=== PATIENT | female | born 1975 ===

== ENCOUNTER 2020-05-19 15:58 | Outpatient (REF) | payer OTHER, SELFPAY ==
--- NOTE | ~2020-05-19 | MM_ITS ---
EXAMINATION: MM SCREENING DIGITAL BREAST TOMOSYNTHESIS, BILATERAL CLINICAL INFORMATION: Screening. Asymptomatic. The lifetime risk of breast cancer based on the Tyrer-Cuzick Model is 7%. COMPARISON: Mammography: 03/12/2019, outside exam 04/28/2017 ([facility]) TECHNIQUE: Digital breast tomosynthesis is performed in both the craniocaudal and mediolateral oblique views along with computer-aided detection (CAD). Synthesized 2D images are generated from the tomosynthesis. FINDINGS: There are scattered areas of fibroglandular density (ACR BI-RADS breast composition Category b). There are no significant masses, abnormal calcifications, or other abnormalities. Parenchymal pattern is similar to prior exams. No significant changes. MM/MM tomosynthesis screening BI IMPRESSION: No mammographic evidence of malignancy. ASSESSMENT: BI-RADS 1: Negative RECOMMENDATION: Routine annual mammography screening. This patient's information was entered into a reminder system with a target due date for their next mammogram.
== END 2020-05-19 15:59 | disposition home or self-care (01) ==
LOC: HO.MAMMO 15:58
PROVIDERS: Visit Provider Internal Medicine
DX: Z12.31 Encounter for screening mammogram for malignant neoplasm of breast (principal)
CPT/HCPCS: 77063; 77067

== ENCOUNTER 2021-05-22 11:48 | Outpatient (REF) | payer OTHER, SELFPAY ==
--- NOTE | ~2021-05-22 | MM_ITS ---
EXAMINATION: MM SCREENING DIGITAL BREAST TOMOSYNTHESIS, BILATERAL CLINICAL INFORMATION: Screening. Asymptomatic. The lifetime risk of breast cancer based on the Tyrer-Cuzick Model is 8%. COMPARISON: Mammography: 05/19/2020, 03/12/2019; outside exam 04/28/2017 ([facility] Guz[facility]) TECHNIQUE: Digital breast tomosynthesis is performed in both the craniocaudal and mediolateral oblique views along with computer-aided detection (CAD). Synthesized 2D images are generated from the tomosynthesis. Additional left MLO view is provided. FINDINGS: There are scattered areas of fibroglandular density (ACR BI-RADS breast composition Category b). There are no significant masses, abnormal calcifications, or other abnormalities. There are scattered shifting fibroglandular parenchymal densities overall similar to prior studies. Fine fibronodular parenchymal pattern is stable. There is no interval developing density or architectural changes. No significant change from prior studies. MM/MM tomosynthesis screening BI IMPRESSION: No mammographic evidence of malignancy. ASSESSMENT: BI-RADS 2: Benign RECOMMENDATION: Routine annual mammography screening. This patient's information was entered into a reminder system with a target due date for their next mammogram.
== END 2021-05-22 11:49 | disposition home or self-care (01) ==
LOC: HO.MAMMO 11:48
PROVIDERS: PCP Internal Medicine; Visit Provider Internal Medicine
DX: Z12.31 Encounter for screening mammogram for malignant neoplasm of breast (principal)
CPT/HCPCS: 77063; 77067

== ENCOUNTER 2022-05-13 11:41 | Outpatient (REF) | payer OTHER, SELFPAY ==
--- NOTE | 2022-05-13 08:15 | EMG_ITS ---
Right median and ulnar motor and sensory studies were performed. Right radial sensory study was performed and paraspinal muscles were tested with a needle. IMPRESSION: Mild to moderate right median neuropathy across carpal tunnel. MD BEATA Baxter/RAYMOND / [id number]
== END 2022-05-13 11:42 | disposition home or self-care (01) ==
LOC: HO.NEURO 11:41
PROVIDERS: Visit Provider Internal Medicine
DX: G56.01 Carpal tunnel syndrome, right upper limb (principal)
CPT/HCPCS: 95886; 95909

== ENCOUNTER 2022-06-14 12:21 | Outpatient (REF) | payer OTHER, SELFPAY ==
[2022-06-16 23:33] LABS: HPV mRNA E6/E7 rflx Not Detected (Not Detected)
== END 2022-06-14 12:22 | disposition home or self-care (01) ==
LOC: HO.LNP 12:21
PROVIDERS: PCP Internal Medicine; Visit Provider Obstetrics & Gynecology
DX: Z12.4 Encounter for screening for malignant neoplasm of cervix (principal); N93.9 Abnormal uterine and vaginal bleeding, unspecified
CPT/HCPCS: 87624; 88142; 99202

== ENCOUNTER 2022-06-14 13:25 | Outpatient (REF) | payer OTHER, SELFPAY ==
[2022-06-14 14:10] LABS: Hematocrit 38.9 % (37.0-47.0); Hemoglobin 12.5 g/dl (12.0-16.0); Mean Corpuscular HGB Conc 32.1 g/dl (31.0-35.0); Mean Corpuscular Hemoglobin 29.4 pg (27.0-33.0); Mean Corpuscular Volume 91.5 fL (80.0-98.0); Mean Platelet Volume 10.1 fL (9.4-12.3); Platelet Count 246 X10*3/uL (160-400); Red Blood Count 4.25 X10*6/uL (4.20-5.50); Red Cell Distribution Width 11.9 % (11.0-16.0); White Blood Count 7.4 X10*3/uL (4.8-10.8)
[2022-06-14 15:11] LABS: HCG Quantitative < 2 mIU/mL
[2022-06-14 16:07] LABS: CT PCR NOT DETECTED (Not Detect.); NG PCR NOT DETECTED (Not Detect.)
[2022-06-16 07:08] LABS: Lutenizing Hormone 1.6 mIU/mL; Prolactin 8.1 ng/mL
== END 2022-06-14 13:26 | disposition home or self-care (01) ==
LOC: HO.LAB 13:25
PROVIDERS: PCP Internal Medicine; Visit Provider Obstetrics & Gynecology
DX: Z11.3 Encounter for screening for infections with a predominantly sexual mode of transmission (principal); N93.9 Abnormal uterine and vaginal bleeding, unspecified
CPT/HCPCS: 0353U; 83001; 83002; 84146; 84443; 84702; 85027

== ENCOUNTER 2022-08-03 14:49 | Outpatient (REF) | payer OTHER, SELFPAY ==
--- NOTE | ~2022-08-03 | MM_ITS ---
EXAMINATION: MM SCREENING DIGITAL BREAST TOMOSYNTHESIS, BILATERAL CLINICAL INFORMATION: Screening. Asymptomatic. The lifetime risk of breast cancer based on the Tyrer-Cuzick Model is 8%. COMPARISON: Mammography: 05/22/2021, 05/19/2020, 03/12/2019 TECHNIQUE: Digital breast tomosynthesis is performed in both the craniocaudal and mediolateral oblique views along with computer-aided detection (CAD). Synthesized 2D images are generated from the tomosynthesis. FINDINGS: The breasts are heterogeneously dense, which may obscure small masses (ACR BI-RADS breast composition Category c). There is fibronodular parenchymal pattern is similar to prior studies. No architectural abnormality. There are scattered shifting fibroglandular parenchymal densities related to variation in positioning. No developing density. There are no significant masses or abnormal calcifications. The axilla and skin contours are unremarkable. MM/MM tomosynthesis screening BI IMPRESSION: No mammographic evidence of malignancy. ASSESSMENT: BI-RADS 2: Benign RECOMMENDATION: Routine annual mammography screening. This patient's information was entered into a reminder system with a target due date for their next mammogram.
--- NOTE | ~2022-08-03 | US_ITS ---
EXAMINATION: US PELVIS CLINICAL INFORMATION: Dysfunctional uterine bleeding. LMP 07/21/2022. COMPARISON: None available. TECHNIQUE: Ultrasound of the pelvis is performed using both transabdominal and transvaginal transducers along with Doppler. Transvaginal imaging is performed due to inadequate visualization transabdominally. FINDINGS: Uterus: The uterus is anteverted and measures 9.9 x 4.5 x 5.2 cm. Uterine echotexture is heterogeneous. The double wall endometrial thickness is 19 mm. Endometrium is thickened and heterogeneous with cystic spaces. No internal color Doppler flow. Adnexa: Both ovaries are visualized. There is normal color flow to the adnexa. There is no pelvic ascites or fluid collection. Right ovary measures 3.8 x 2.0 x 2.7 cm. Left ovary measures 2.3 x 1.2 x 1.4 cm. Exophytic cyst measures 0.7 x 0.6 x 0.5 cm. US/US pelvic and transvaginal IMPRESSION: Thickened and heterogeneous endometrium with cystic spaces. Gynecologic consultation is advised.
== END 2022-08-03 14:50 | disposition home or self-care (01) ==
LOC: HO.US 14:49
PROVIDERS: PCP Internal Medicine; Visit Provider Obstetrics & Gynecology
DX: Z12.31 Encounter for screening mammogram for malignant neoplasm of breast (principal); N93.9 Abnormal uterine and vaginal bleeding, unspecified
CPT/HCPCS: 76830; 76856; 77063; 77067

== ENCOUNTER 2022-08-26 07:58 | Outpatient (AMB) | payer OTHER, SELFPAY ==
--- NOTE | 2022-08-26 07:58 | MHC.OFFVIS ---
Intake Vital Signs 08/26/22 08:02 Height 5 ft 3 in Weight 152 lb 1.903 oz BMI 26.9 BP 120/74 Intake Visit Reasons: us follow up Health Practice Manager Required: Yes Health Practice Manager Language: Blacksmith Helper Name: Sue WEINBERG Information Interpreted: non-clinical & clinical Biostatistics Director: Biostatistics Director Present Accompanied by: Self / Same As Patient Allergies No Known Allergies Allergy (Verified 08/26/22 08:03) Is last menstrual period known: Yes Last menstrual period: 08/18/22 Post menopausal: No Patient : No Do you need a note to return to daycare/school/sports/work: Yes (for surgery on tuesday) HPI HPI Comments History of Present Illness Details Presenting for follow-up. Ultrasound showed the following: Uterus: The uterus is anteverted and measures 9.9 x 4.5 x 5.2 cm.? Uterine echotexture is heterogeneous. The double wall endometrial thickness is 19 mm. Endometrium is thickened and heterogeneous with cystic spaces. No internal color Doppler flow. Adnexa: Both ovaries are visualized. There is normal color flow to the adnexa. There is no pelvic ascites or fluid collection. Right ovary measures 3.8 x 2.0 x 2.7 cm. Left ovary measures 2.3 x 1.2 x 1.4 cm. Exophytic cyst measures 0.7 x 0.6 x 0.5 cm. PFSH Medical History Anxiety Surgical History Hx of tubal ligation S/P foot surgery, right Female Reproductive History Menstrual Age of Menarche: 13 Date of last menstrual period: 08/18/22 Total pregnancies: 2 Full term: 2 Review of Systems Card Reports as per HPI and Reports no additional complaints Resp Reports as per HPI and Reports no additional complaints GI Reports as per HPI and Reports no additional complaints Reports as per HPI Physical Exam Vital Signs: Last Vital Signs BP 120/74 08/26/22 08:02 BMI result Body Mass Index 26.9 Const General: cooperative, healthy appearing and comfortable Chest Chest palpation & inspection: normal inspection of the chest and normal palpation of entire chest wall Breast/axilla inspection: normal inspection of the breasts and normal inspection of the axillae Breast/axilla palpation: normal palpation of the breasts, normal palpation of the axillae and no axillary lymphadenopathy Resp Effort & Inspection: normal respiratory effort Auscultation: clear to auscultation bilaterally Percussion: percussion normal Cardio Palpation: normal PMI Rate: regular rate Rhythm: regular rhythm Heart sounds: no murmurs and no rubs Peripheral pulses: Peripheral pulses 2+ throughout GI Inspection: Yes normal to inspection Palpation (GI): Soft to palpation, nontender, no guarding, not rigid and No hepatosplenomegaly present Percussion: Yes normal to percussion Auscultation: normal bowel sounds Rectal Exam - Female: deferred Assessment & Plan Assessment & Plan (1) Abnormal uterine bleeding (AUB): Comment: Abn endo by US Code(s): N93.9 - Abnormal uterine and vaginal bleeding, unspecified Plan: Discussed with the patient the results of ultrasound, recommended endometrial sampling via either endometrial biopsy in the office or hysteroscopy D&C possible polypectomy/myomectomy. All the pros and cons, risks and benefits of each were discussed with the patient, the patient decided to proceed with hysteroscopy D&C possible polypectomy/myomectomy. Discussed with the patient the procedure , all benefits and risks including but not limited to inability to complete the procedure , bleeding, infection, possible need for blood transfusion with all its risk ( HIV,syphilis, Hepatitis, anaphylaxis shock, others..), injury to bladder, rectum, possible need for laparoscopy/laparotomy or hysterectomy. The patient verbalized understanding and signed the consent. Instructions given the patient to schedule a 2 week postoperative appointment Coding Level of Care Code Est Pt Level 3 (64013) Diagnoses Abnormal uterine bleeding (AUB) N93.9
[2022-08-26 08:02] VITALS: BP 120/74; BMI 26.9
== END 2022-08-26 09:15 | disposition home or self-care (01) ==
LOC: HO.HWS 07:58
PROVIDERS: PCP Internal Medicine; Visit Provider Obstetrics & Gynecology
DX: N93.9 Abnormal uterine and vaginal bleeding, unspecified (principal)
CPT/HCPCS: 99213

== ENCOUNTER → 2022-08-26 07:58 | Outpatient (BNVA) | payer OTHER, SELFPAY | PROVIDERS: PCP Internal Medicine; Visit Provider Obstetrics & Gynecology | DX: N93.9 Abnormal uterine and vaginal bleeding, unspecified (principal) | CPT/HCPCS: 99212 ==

== ENCOUNTER 2022-09-17 08:53 | Day surgery (SDC) | payer OTHER, SELFPAY ==
[2022-09-14 11:53] VITALS: BMI 26.9
--- NOTE | 2022-09-16 08:28 | HO.ANESPROP2 ---
Documented by User: Cyndi Miramontes NP 09/16/22 08:29 HPI - Anesthesia Eval Consult details Narrative: 47yo F for D&C Hysteroscopy,poss myomectomy,poss polypectomy PMFSH Active Problems Active Problems: All Active Problems (Updated 08/26/22 @ 08:13 by Devang Mosley MD) Abnormal uterine bleeding (AUB) (Acute) Past Medical History Medical History Anxiety Surgical History Surgical History Hx of tubal ligation S/P foot surgery, right Social History Social History Patient Tobacco Use Status: Never used Tobacco Second Hand Smoke Exposure: No Use of substances other than those prescribed or required for medical reasons: No Are you DNR?: No Advance Directives: No Advance Directives Information Provided: Yes Advance Directives on File: No Meds Allergies Allergy/AdvReac Type Severity Reaction Status Date / Time No Known Allergies Allergy Verified 08/26/22 08:03 Home Medications Medication Instructions Recorded Confirmed Last Taken Type aripiprazole 2 mg tablet 2 mg PO QPM 06/14/22 09/14/22 Unknown History montelukast 10 mg tablet 10 mg PO DAILY 06/14/22 09/14/22 Unknown History trazodone 50 mg tablet 50 mg PO BEDTIME 06/14/22 09/14/22 Unknown History Exam Exam Date and Time: September 16, 2022 0828 Height,Weight and Vital Signs: Height 5 ft 3 in Weight 68.946 kg Assessment and Plan Assessment Anesthesia Assessment: Chart Reviewed Documented by User: Breana Viera MD 09/17/22 10:01 PMFSH Active Problems Active Problems: All Active Problems (Updated 09/17/22 @ 09:45 by Man Viera MD) Abnormal uterine bleeding (AUB) (Acute) Past Medical History Medical History Anxiety Family History Family history of problems with anesthesia: No Surgical History Surgical History Hx of tubal ligation S/P foot surgery, right History of Problems with Anesthesia: No Social History Social History Patient Tobacco Use Status: Never used Tobacco Second Hand Smoke Exposure: No Use of substances other than those prescribed or required for medical reasons: No Are you DNR?: No Advance Directives: No Advance Directives Information Provided: Yes Advance Directives on File: No Meds Allergies Allergy/AdvReac Type Severity Reaction Status Date / Time No Known Allergies Allergy Verified 08/26/22 08:03 Home Medications Medication Instructions Recorded Confirmed Last Taken Type aripiprazole 2 mg tablet 2 mg PO QPM 06/14/22 09/14/22 Unknown History montelukast 10 mg tablet 10 mg PO DAILY 06/14/22 09/14/22 Unknown History trazodone 50 mg tablet 50 mg PO BEDTIME 06/14/22 09/14/22 Unknown History Exam Height,Weight and Vital Signs: Height 5 ft 3 in Weight 68.946 kg Vital Signs Temp Pulse Resp BP Pulse Ox O2 Del Method 09/17/22 09:20 98.3 F 56 16 115/67 100 Room Air Pertinent Lab Results Pertinent Lab Results: Lab Results 09/17/22 Range/Units 09:12 Urine Test NEGATIVE (NEGATIVE) Airway Mallampati Class: II TM Dist: >3cm Neck ROM: Full Loose/Missing/Broken Teeth: No Heart: RRR Lungs: CTAB Assessment and Plan Assessment Anesthesia Assessment: Anesthesia Plan Discussed Final Anesthetic Review Family History of Problems with Anesthesia: No History of Problems with Anesthesia: No NPO: Yes ASA Class: II Final Preanesthetic Review: No Changes in Pt Med Stat, Meds/Allgs Chart Reviewed, Consent Obtained/Reviewed and Anes Risks/Benef Reviewed Patient Risk: Low Procedure Risk: Low Assessment/Block/Sedation in SS: Assess/Block/Sedation-SS Anesthetic Plan Anesthetic Plan: GA Disposition: Standard PACU
--- NOTE | 2022-09-17 09:06 | MHC.SHP ---
Pre-Procedural Eval Section A Date of Service: 09/17/22 The patient is an INPATIENT: No Changes since office visit: No Cold of Flu in the past 2 weeks, No New Medical Problems, No Changes in Medication and No Patient answered all questions The History & Physical has been completed within 30 days and I have reviewed it.: Yes Section B Chief Complaint: Abnormal uterine and vaginal bleeding, unspecified Allergies: Allergies Allergy/AdvReac Type Severity Reaction Status Date / Time No Known Allergies Allergy Verified 08/26/22 08:03 Plan Diagnosis/Plan: Unchanged I have reviewed the history and physical and performed a pertinent physical examination on my patient. No changes have occurred unless specified. Time Spent With Patient Time: Total time managing care of this patient today ____ minutes.
[2022-09-17 09:20] VITALS: BP 115/67; PULSE 56; RESP 16; TEMP 36.8; O2SAT 100
[2022-09-17 09:23] LABS: UPreg QC Valid YES; Urine Pregnancy NEGATIVE (NEGATIVE)
[2022-09-17] MEDS: Lactated Ringers 1,000 ML 100 ML IVCONT (09:31)
--- NOTE | 2022-09-17 10:32 | PM.OP ---
Brief Operative Note Date of Service: 09/17/22 Pre-op diagnosis: Abnormal uterine bleeding, abnormal endometrium by ultrasound Post-op diagnosis: same (Normal endometrial cavity) Procedure: Hysteroscopy D&C Surgeon: Devang Mosley MD Anesthesia: GLMA Was an Assistant Child Care Teacher used for this Procedure?: No Estimated blood loss (mL): 0 Pathology: other (Endometrial Scrapping. ) Condition: stable Disposition: PACU
--- NOTE | 2022-09-17 10:33 | W.PM.OPN ---
Operative Note Operative Note Date of Service: 09/17/22 Narrative: Preop Diagnosis: Abnormal uterine bleeding, and abnormal endometrium by ultrasound Operation: Diagnostic Hysteroscopy, Dilataion & Curettage Post Op Diagnosis: Normal endometrial and endocervical cavity, no evidence of pathology QBL: Minimal Anesthesia: GLMA Surgeon: Devang Mosley MD Composing Room Machinist: None Complication: None Pathology: Endometrial Scrapings Procedure: The patient was put in the dorsal lithotomy position, scrubbed, and draped in the usual manner. A sterile speculum was inserted in the patient's vagina. The anterior lip of the cervix was grasped with a single tooth tenaculum. The cervix was dilated up to 5 mm, then the scope was inserted in the patient's uterus. Inspection revealed normal endocervical & endometrial cavity with no evidence of pathology. The scope was taken out of the uterine cavity , then sharp curetting was carried on with no complications. At the end of the procedure, all instruments were taken out of the patient uterine and vaginal cavity. The single tooth tenaculum was removed and homeostasis was assured using pressure. The patient tolerated the procedure well and was transferred to the PACU in a stable condition.
[2022-09-17 10:40] VITALS: BP 135/62; PULSE 62; RESP 16; TEMP 36.3; O2SAT 100
[2022-09-17 10:45] VITALS: BP 106/42; PULSE 64; RESP 16; O2SAT 100
[2022-09-17 10:50] VITALS: BP 114/68; PULSE 68; RESP 18
[2022-09-17 11:13] VITALS: BP 134/83; PULSE 50; RESP 18; O2SAT 98
[2022-09-17] MEDS: Acetaminophen 325 MG TABLET 650 MG PO (11:17)
[2022-09-17 11:37] VITALS: BP 111/52; PULSE 58; RESP 18; TEMP 36.1; O2SAT 99
== END 2022-09-17 11:54 | disposition home or self-care (01) ==
PROVIDERS: PCP Internal Medicine; Visit Provider Obstetrics & Gynecology
PROC: 0UDB8ZZ Extraction of Endometrium, Via Natural or Artificial Opening Endoscopic (ICD-10-PCS; CPT 58558; principal; 2022-09-17 10:30)
DX: N93.9 Abnormal uterine and vaginal bleeding, unspecified (principal); F41.1 Generalized anxiety disorder; Z98.51 Tubal ligation status; Z79.899 Other long term (current) drug therapy
CPT/HCPCS: 58558; 81025; 88305; J1100; J1885; J2250; J2405

== ENCOUNTER → 2022-09-17 08:53 | Outpatient (BNV) | payer OTHER, SELFPAY | PROVIDERS: PCP Internal Medicine; Visit Provider Obstetrics & Gynecology | DX: N93.9 Abnormal uterine and vaginal bleeding, unspecified (principal); R93.89 Abnormal findings on diagnostic imaging of other specified body structures | CPT/HCPCS: 58558 ==

== ENCOUNTER 2022-09-28 09:37 | Outpatient (AMB) | payer OTHER, SELFPAY ==
[2022-09-28 09:43] VITALS: BP 110/66; BMI 26.9
--- NOTE | 2022-09-28 09:43 | MHC.OFFVIS ---
Intake Vital Signs 09/28/22 09:43 Height 5 ft 3 in Weight 152 lb BMI 26.9 BP 110/66 Intake Visit Reasons: post op Coal Dumping Equipment Operator Required: Yes Coal Dumping Equipment Operator Language: Diet Supervisor Name: Sue WEINBERG Allergies No Known Allergies Allergy (Verified 09/28/22 09:44) Is last menstrual period known: Yes Last menstrual period: 09/23/22 Post menopausal: No HPI HPI Comments History of Present Illness Details The patient is presenting post hysteroscopy D&C no complaints minimal vaginal bleeding no feverishness chills or abdominal pain. The pathology showed the following: Endometrium, curettage: Secretory endometrium; no atypia or hyperplasia identified. The following workup was done.: H&H= 12.5/38.9 TSH, hCG, GC and chlamydia were negative. FSH/LH premenopausal range Co testing was done was negative. Mammogram was BI-RADS 2. Pelvic ultrasound showed the following: Uterus: The uterus is anteverted and measures 9.9 x 4.5 x 5.2 cm.? Uterine echotexture is heterogeneous. The double wall endometrial thickness is 19 mm. Endometrium is thickened and heterogeneous with cystic spaces. No internal color Doppler flow. Adnexa: Both ovaries are visualized. There is normal color flow to the adnexa. There is no pelvic ascites or fluid collection. Right ovary measures 3.8 x 2.0 x 2.7 cm. Left ovary measures 2.3 x 1.2 x 1.4 cm. Exophytic cyst measures 0.7 x 0.6 x 0.5 cm. PFSH Medical History Anxiety Surgical History Hx of tubal ligation S/P foot surgery, right Social History Patient Tobacco Use Status: Never used Tobacco Second Hand Smoke Exposure: No Female Reproductive History Menstrual Age of Menarche: 13 Date of last menstrual period: 09/23/22 control method: permanent sterilization Date of last pap smear: 06/15/22 (negative) Review of Systems Const All systems reviewed & are unremarkable except as noted in HPI and below Reports as per HPI and Reports no additional complaints GI Reports no additional complaints Reports no additional complaints Physical Exam Vital Signs: Last Vital Signs BP 110/66 09/28/22 09:43 BMI result Body Mass Index 26.9 Assessment & Plan Assessment & Plan (1) Abnormal uterine bleeding (AUB): Code(s): N93.9 - Abnormal uterine and vaginal bleeding, unspecified Plan: Discussed with the patient the results of the work up done and options of treatment including but not limited to BCP's, cyclic Progesterone, Mirena IUD, endometrial ablation and hysterectomy. All pros, cons, risks and benefits of each option were discussed with the patient and the patient decided to go ahead with cyclic Provera, so a more detailed discussion re: Progesterone treatment including mechanism of action, benefits (regular menses, endometrial protection form unopposed estrogen and reduction in the risk of endometrial hyperplasia and/or cancer ...), risks (Thrombosis, mood changes, weight gain, breast soreness, ? increased breast ca, others). Instructions were given to schedule 3 months appointment. The patient verbalized understanding and agreed with the plan. Medications: New medroxyprogesterone (Provera) start Provera 1 tablet daily from day 15-24 cyclically every months, day 1 being 1st day of menses 10 mg PO DAILY 30 tabs 0RF 10 days Coding Level of Care Code Est Pt Level 3 (30606) Diagnoses Abnormal uterine bleeding (AUB) N93.9
== END 2022-09-28 10:13 | disposition home or self-care (01) ==
LOC: HO.HWS 09:37
PROVIDERS: PCP Internal Medicine; Visit Provider Obstetrics & Gynecology
DX: N93.9 Abnormal uterine and vaginal bleeding, unspecified (principal)
CPT/HCPCS: 99213

== ENCOUNTER → 2022-09-28 09:37 | Outpatient (BNVA) | payer OTHER, SELFPAY | PROVIDERS: PCP Internal Medicine; Visit Provider Obstetrics & Gynecology | DX: Z48.816 Encounter for surgical aftercare following surgery on the genitourinary system (principal); N93.9 Abnormal uterine and vaginal bleeding, unspecified | CPT/HCPCS: 99212 ==

== ENCOUNTER 2022-11-08 08:42 | Day surgery (SDC) | payer OTHER, SELFPAY ==
--- NOTE | 2022-11-05 09:17 | P.CONAN_ITS ---
Documented by User: Cyndi Miramontes NP 11/05/22 09:17 HPI - Anesthesia Eval Consult details Narrative: 47yo F for Colonoscopy s/p tubal PMFSH Active Problems Active Problems: All Active Problems (Updated 11/05/22 @ 06:39 by Dinah Galicia RN) Abnormal uterine bleeding (AUB) (Acute) Past Medical History Medical History Allergies Depression Anxiety Family History Family history of problems with anesthesia: No Surgical History Surgical History (Updated 11/08/22 @ 09:27 by Breana Viera MD) History of hysteroscopy S/P foot surgery, right Hx of tubal ligation History of Problems with Anesthesia: No Social History Social History Patient Tobacco Use Status: Never used Tobacco Second Hand Smoke Exposure: No Advance Directives: No Advance Directives Information Provided: Yes Meds Allergies Allergy/AdvReac Type Severity Reaction Status Date / Time No Known Allergies Allergy Verified 09/28/22 09:44 Home Medications Medication Instructions Recorded Confirmed Last Taken Type aripiprazole 2 mg tablet 2 mg PO QPM 06/14/22 09/14/22 Unknown History trazodone 50 mg tablet 50 mg PO BEDTIME 06/14/22 09/14/22 Unknown History loratadine 10 mg tablet (Claritin) 10 mg PO DAILY 11/05/22 11/05/22 Unknown History Exam Exam Date and Time: November 05, 202217 Assessment and Plan Assessment Anesthesia Assessment: Chart Reviewed Final Anesthetic Review Family History of Problems with Anesthesia: No History of Problems with Anesthesia: No Documented by User: Breana Viera MD 11/08/22 09:34 PMFSH Active Problems Active Problems: All Active Problems (Updated 11/08/22 @ 09:39 by Breana Viera MD) Abnormal uterine bleeding (AUB) (Acute) Past Medical History Medical History Allergies Depression Anxiety Surgical History Surgical History (Updated 11/08/22 @ 09:27 by Breana Viera MD) History of hysteroscopy S/P foot surgery, right Hx of tubal ligation Social History Social History Patient Tobacco Use Status: Never used Tobacco Second Hand Smoke Exposure: No Advance Directives: No Advance Directives Information Provided: Yes Meds Allergies Allergy/AdvReac Type Severity Reaction Status Date / Time No Known Allergies Allergy Verified 09/28/22 09:44 Home Medications Medication Instructions Recorded Confirmed Last Taken Type aripiprazole 2 mg tablet 2 mg PO QPM 06/14/22 09/14/22 Unknown History trazodone 50 mg tablet 50 mg PO BEDTIME 06/14/22 09/14/22 Unknown History loratadine 10 mg tablet (Claritin) 10 mg PO DAILY 11/05/22 11/05/22 Unknown History Exam Height,Weight and Vital Signs: Height 5 ft 3 in Weight 66.224 kg Vital Signs Temp Pulse Resp BP Pulse Ox O2 Del Method 11/08/22 09:10 97.3 F 70 18 1136/73 H 100 Room Air Airway Mallampati Class: II TM Dist: >3cm Neck ROM: Full Loose/Missing/Broken Teeth: No (Denies broken, loose, missing teeth) Heart: RRR Lungs: CTAB Assessment and Plan Assessment Anesthesia Assessment: Anesthesia Plan Discussed Final Anesthetic Review NPO: Yes ASA Class: II Final Preanesthetic Review: No Changes in Pt Med Stat, Meds/Allgs Chart Reviewed , Consent Obtained/Reviewed and Anes Risks/Benef Reviewed Patient Risk: Low Procedure Risk: Low Assessment/Block/Sedation in SS: Assess/Block/Sedation-SS Anesthetic Plan Anesthetic Plan: MAC: Disposition: Standard PACU
[2022-11-08 09:10] VITALS: BP 1136/73; PULSE 70; RESP 18; TEMP 36.3; O2SAT 100; BMI 25.9
[2022-11-08] MEDS: Lactated Ringers 1,000 ML 100 ML IVCONT (09:15)
[2022-11-08 10:53] VITALS: BP 109/58; PULSE 62; RESP 16; TEMP 36.1; O2SAT 99
--- NOTE | 2022-11-08 10:53 | P.BOP_ITS ---
Brief Operative Note Date of Service: 11/08/22 Pre-op diagnosis: Screening Post-op diagnosis: other (Normal exam) Procedure: Colonoscopy to the cecum and TI Surgeon: Peter Veliz Anesthesia: MAC Was an Tailor Women'S Garment Alteration used for this Procedure?: No Estimated blood loss (mL): 0 Pathology: none sent Condition: stable Disposition: PACU
[2022-11-08 11:08] VITALS: BP 110/65; PULSE 65; RESP 18; TEMP 36.6; O2SAT 100
--- NOTE | 2022-11-08 11:31 | OP_ITS ---
DATE OF SERVICE: 11/08/2022 SURGEON: Peter Veliz MD INDICATIONS: The patient presents for evaluation of colorectal cancer screening. Full consent has been obtained from her for this, including risks of bleeding and perforation. PREOPERATIVE DIAGNOSIS: Colorectal cancer screening. POSTOPERATIVE DIAGNOSIS: Colorectal cancer screening, normal exam. PROCEDURE PERFORMED: Colonoscopy to the cecum and terminal ileum. ESTIMATED BLOOD LOSS: COMPLICATIONS: ANESTHESIA: Monitored anesthesia care. ASSISTANTS: SPECIMENS: DESCRIPTION OF PROCEDURE: The patient was placed in the left lateral decubitus position. The digital rectal exam revealed no abnormalities. The Olympus video pediatric colonoscope was entered into the rectum and advanced easily to the cecum. Once in the cecum, I did identify normal-appearing cecal pouch with appendiceal orifice and a normal-appearing ileocecal valve. The terminal ileum was cannulated and appeared normal. The scope was withdrawn back in the colon. The entire cecum and ileocecal valve appeared normal. The scope was slowly withdrawn assessing all mucosal surfaces carefully. Preparation was excellent. I did not visualize any sign of polyps, colitis, nor angiodysplasia. There was no appreciable diverticulosis. In the rectum, scope was retroflexed visualizing normal rectal mucosa and no pathology. The scope was straightened and withdrawn from the patient. She tolerated the procedure well and was returned to the recovery area in stable condition. IMPRESSION: Normal colonoscopy. PLAN: I would recommend a repeat colonoscopy in 10 years for further screening. She will otherwise see me on a p.r.n. basis. This has been discussed with her . MD GEORGI King/RAYMOND / [id number] [email or web address]
== END 2022-11-08 11:57 | disposition home or self-care (01) ==
PROVIDERS: PCP Internal Medicine; Visit Provider Internal Medicine
PROC: 0DJD8ZZ Inspection of Lower Intestinal Tract, Via Natural or Artificial Opening Endoscopic (ICD-10-PCS; CPT 45378; principal; 2022-11-08 09:50)
DX: Z12.11 Encounter for screening for malignant neoplasm of colon (principal); F41.8 Other specified anxiety disorders; Z79.899 Other long term (current) drug therapy; Z91.09 Other allergy status, other than to drugs and biological substances
CPT/HCPCS: 45378

== ENCOUNTER 2023-01-10 09:00 | Outpatient (AMB) | payer OTHER, SELFPAY ==
--- NOTE | 2023-01-10 09:11 | MHC.OFFVIS ---
Intake Vital Signs 01/10/23 09:13 Height 5 ft 3 in Weight 145 lb 8.081 oz BMI 25.8 BP 118/70 Intake Visit Reasons: 3 month Med follow up/DO NOT RS Assisted Sales Representative Required: Yes Assisted Sales Representative Language: Supervisor Speech Name: Sue WEINBERG Information Interpreted: non-clinical & clinical Accompanied by: Self / Same As Patient Allergies No Known Allergies Allergy (Verified 01/10/23 09:14) Is last menstrual period known: Yes Last menstrual period: 12/24/22 HPI HPI Comments History of Present Illness Details Presenting for 3 months Provera follow-up. The patient has been taking Provera 10 mg p.o. q.d. day 15-24 cyclicly and her menstrual cycle has been regular and light with no complaints. Patient is requesting a refill for her Provera [facility] Medical History Allergies Depression Anxiety Surgical History History of hysteroscopy S/P foot surgery, right Hx of tubal ligation Social History Patient Tobacco Use Status: Never used Tobacco Second Hand Smoke Exposure: No Female Reproductive History Menstrual Age of Menarche: 13 Date of last menstrual period: 12/24/22 Review of Systems Const All systems reviewed & are unremarkable except as noted in HPI and below Reports as per HPI and Reports no additional complaints GI Reports no additional complaints Reports no additional complaints Physical Exam Vital Signs: Last Vital Signs BP 118/70 01/10/23 09:13 BMI result Body Mass Index 25.8 Assessment & Plan Assessment & Plan (1) Abnormal uterine bleeding (AUB): Code(s): N93.9 - Abnormal uterine and vaginal bleeding, unspecified Plan: Refill Provera 10 mg p.o. q.d. day 15-24 cyclic, instructions given to the patient to call in case of abnormal uterine bleeding, otherwise schedule a follow-up appointment for annual exam. All questions answered, the patient verbalized understanding. Medications: Refilled medroxyprogesterone (Provera) start Provera 1 tablet daily from day 15-24 cyclically every months, day 1 being 1st day of menses 10 mg PO DAILY 10 days 30 tabs 3RF Coding Level of Care Code Est Pt Level 3 (05601) Diagnoses Abnormal uterine bleeding (AUB) N93.9
[2023-01-10 09:13] VITALS: BP 118/70; BMI 25.8
== END 2023-01-10 09:51 | disposition home or self-care (01) ==
LOC: HO.HWS 09:00
PROVIDERS: PCP Internal Medicine; Visit Provider Obstetrics & Gynecology
DX: N93.9 Abnormal uterine and vaginal bleeding, unspecified (principal)
CPT/HCPCS: 99213

== ENCOUNTER → 2023-01-10 09:00 | Outpatient (BNVA) | payer OTHER, SELFPAY | PROVIDERS: PCP Internal Medicine; Visit Provider Obstetrics & Gynecology | DX: Z76.0 Encounter for issue of repeat prescription (principal); N93.9 Abnormal uterine and vaginal bleeding, unspecified | CPT/HCPCS: 99212 ==

== ENCOUNTER 2023-11-02 07:28 | Outpatient (AMB) | payer OTHER, SELFPAY ==
--- NOTE | 2023-11-02 07:33 | A.OFFVIS_ITS ---
Vital Signs 11/02/23 07:36 Height 5 ft 3 in Weight 146 lb BMI 25.9 BP 118/70 Intake Visit Reasons: annual/DO NOT RS Intake Note: no concerns Traffic Signal Mechanic Required: Yes Traffic Signal Mechanic Language: Operation Research Analyst Services: Traffic Signal Mechanic Present (in person) Traffic Signal Mechanic Name: Sue WEINBERG Information Interpreted: non-clinical & clinical Network Support Technician: Network Support Technician Present (Sue WEINBERG) Accompanied by: Self / Same As Patient Allergies No Known Allergies Allergy (Verified 11/02/23 07:38) Is last menstrual period known: Yes Last menstrual period: 10/22/23 HPI Comments Details: Presenting for annual exam. No complaints. Last Pap/HPV was negative in 06/29 Last Mammogram was BI-RADS 2 in 07/30 Last Colonoscopy was in 11/29, the recommendation was to repeat in 10 years [facility] Medical History Allergies Depression Anxiety Surgical History History of hysteroscopy S/P foot surgery, right Hx of tubal ligation Social History Household Members: Spouse and Children Housing: House Alcohol intake: current Alcohol intake frequency: holidays/special occasions only Patient Tobacco Use Status: Never used Tobacco Second Hand Smoke Exposure: No Current occupational status: unemployed Sexual orientation: Straight/Heterosexual Gender identity: Female Female Reproductive History Menstrual Age of Menarche: 13 Date of last menstrual period: 10/22/23 control method: permanent sterilization Total pregnancies: 5 Full term: 4 Number of Living Children: 4 Ab spontaneous: 1 Date of last pap smear: 06/15/22 History of abnormal pap smear: No Date of Mammogram: 08/03/22 Review of Systems Const All systems reviewed & are unremarkable except as noted in HPI and below Card Reports as per HPI Resp Reports as per HPI GI Reports as per HPI and Reports no additional complaints Reports as per HPI Physical Exam Vital Signs: BMI result Body Mass Index 25.9 Const General: cooperative, healthy appearing and comfortable Chest Chest palpation & inspection: normal inspection of the chest and normal palpation of entire chest wall Breast/axilla inspection: normal inspection of the breasts and normal inspection of the axillae Breast/axilla palpation: normal palpation of the breasts, normal palpation of the axillae and no axillary lymphadenopathy Resp Effort & Inspection: normal respiratory effort Auscultation: clear to auscultation bilaterally Percussion: percussion normal Cardio Palpation: normal PMI Rate: regular rate Rhythm: regular rhythm Heart sounds: no murmurs and no rubs Peripheral pulses: Peripheral pulses 2+ throughout GI Inspection: Yes normal to inspection Palpation (GI): Soft to palpation, nontender, no guarding, not rigid and No hepatosplenomegaly present Percussion: Yes normal to percussion Auscultation: normal bowel sounds Rectal Exam - Female: deferred General: Yes bladder normal to palpation External Female Exam: No lesion Speculum Exam - Vagina: normal appearance of the vagina, normal palpation, normal vaginal discharge and not erythematous Speculum Exam - Cervix: normal appearance of the cervix and normal palpation Bimanual exam- vagina & uterus: normal bimanual exam, normal palpation, uterine size normal, bladder normal to palpation, consistency normal and normal palpation Bimanual Exam- Adnexa, other: normal adnexae, no masses and no tenderness Assessment & Plan Assessment & Plan (1) Well woman exam: Code(s): Z01.419 - Encounter for gynecological examination (general) (routine) without abnormal findings Category: Medical Plan: Co testing not indicated this year. Counseled the patient about the recommended dietary allowance of 1200 mg of Calcium & 600 IU of vitamin D. Mammogram ordered. The patient was instructed to perform monthly self-breast exams and schedule annual exam in a year. All questions answered and the patient verbalized understanding. Orders: Orders MM tomosynthesis screening BI Today Z12.31 - Encounter for screening mammogram for malignant neoplasm of breast Coding Level of Care Code Est Pt Prev Care 40-64y(19433) Diagnoses Well woman exam Z01.419
[2023-11-02 07:36] VITALS: BP 118/70; BMI 25.9
== END 2023-11-02 08:03 | disposition home or self-care (01) ==
PROVIDERS: PCP Internal Medicine; Visit Provider Obstetrics & Gynecology
DX: Z01.419 Encounter for gynecological examination (general) (routine) without abnormal findings (principal)
CPT/HCPCS: 99396

== ENCOUNTER → 2023-11-02 07:28 | Outpatient (BNVA) | payer OTHER, SELFPAY | PROVIDERS: PCP Internal Medicine; Visit Provider Obstetrics & Gynecology | DX: Z01.419 Encounter for gynecological examination (general) (routine) without abnormal findings (principal) | CPT/HCPCS: 99396 ==

== ENCOUNTER 2023-12-01 08:51 | Outpatient (REF) | payer OTHER, SELFPAY ==
--- NOTE | ~2023-12-01 | MM_ITS ---
EXAMINATION: MM SCREENING DIGITAL BREAST TOMOSYNTHESIS, BILATERAL CLINICAL INFORMATION: Screening. Asymptomatic. COMPARISON: Mammography: Comparison is made with available priors TECHNIQUE: Digital breast mammography with tomosynthesis is performed in both the craniocaudal and mediolateral oblique views along with computer-aided detection (CAD). FINDINGS: The breasts are heterogeneously dense, which may obscure small masses (ACR BI-RADS breast composition Category c). There are no significant masses, abnormal calcifications, or other abnormalities. MM/MM tomosynthesis screening BI IMPRESSION: No mammographic evidence of malignancy. ASSESSMENT: BI-RADS BI-RADS 1 - Negative RECOMMENDATION: Routine annual mammography screening. 1 year F/U This examination should not preclude the clinical evaluation of a suspicious palpable abnormality. This patient's information was entered into a reminder system with a target due date for their next mammogram. Electronically signed by: Frannie Garland DO 12/12/2023 04:15 PM [facility]
== END 2023-12-01 08:52 | disposition home or self-care (01) ==
LOC: HO.MAMMO 08:51
PROVIDERS: PCP Internal Medicine; Visit Provider Obstetrics & Gynecology
DX: Z12.31 Encounter for screening mammogram for malignant neoplasm of breast (principal)
CPT/HCPCS: 77063; 77067

== ENCOUNTER → 2023-12-01 09:00 | Outpatient (BNV) | payer OTHER, SELFPAY | PROVIDERS: PCP Internal Medicine; Visit Provider Internal Medicine | DX: Z12.31 Encounter for screening mammogram for malignant neoplasm of breast (principal) | CPT/HCPCS: 77063; 77067 ==

== ENCOUNTER 2024-03-06 05:35 | Outpatient (REF) | payer OTHER, SELFPAY ==
--- NOTE | 2024-03-06 | EMG_ITS ---
FINDINGS: Right median and ulnar motor and sensory studies were performed. Right radial, sensory, and median and lateral antecubital brachial sensory studies were performed and paraspinal muscles were tested with a needle. IMPRESSION: [id number] right median neuropathy across carpal tunnel. MD BEATA Baxter/RAYMOND / [id number]
--- OUTSIDE RECORDS SUMMARY | 2024-03-06 05:37 | XMS_ITS | Patient Health Record ---
Author Organization [facility] Address [address] [place] [address] Care Team Providers Care Wood Scrap Handler Name Role Phone Abby Nicole Primary Care Provider UnavailPeter Manuel [phone] ALLERGIES No Known Allergies REASON FOR REFERRAL No Information MEDICATIONS Medication SIG (Take, Route, Frequency, Duration) Notes Start Date End Date Status Claritin 10 MG 1 tablet Orally Once a day for 30 day(s) Active MiraLax (colon prep) 17 GM/SCOOP 1 238Gm bottle mixed with Gatorade or Crystal Light Orally begin at 5:00 p.m. the day before the procedure for 1 day 08/10/2022 Active cloNIDine Not-Taking Zolpidem Tartrate No t-Taking Montelukast Sodium N ot-Taking Dulcolax (colon prep) 5 MG take at 3:00 p.m and 7:00p.m. Orally two tablets twice a day for one day for 1 day 08/10/2022 Active traZODone HCl Active ARIPiprazole Active SOCIAL HISTORY Tobacco Use: Social History Observation Description Date Details (start date - stop date) Never Smoker NA - NA Sex Assigned At : Social History Observation Description Sex Assigned At Unknown Tobacco Use/Smoking Question Answer Notes Patient is a nonsmoker Alcohol Screen Question Answer Notes Did you have a drink contain ing alcohol in the past year? Yes How often did you have a dri nk containing alcohol in the past year? Monthly or less (1 point) How many drinks did you have on a typical day when you were drinking in the past year? 1 or 2 drinks (0 point) How often did you have 6 or more drinks on one occasion in the past year? Never (0 point) Points 1 Interpretation Negative PROBLEMS Problem Type ICD Code Onset Dates Problem Status W/U Status Risk SNOMED Code Notes Problem Colon cancer screening (Z12.11) Active confirmed [id number] Problem Preprocedural examination (Z01.818) Active confirmed [id number] PLAN OF TREATMENT Future Test Test Name Order Date COLONOSCOPY 08/06/2022 Insurance Providers Payer Name Payer Address Payer Phone Subscriber Number Group Number Insured Name Patient Relationship to Insured Coverage Start Date Coverage End Date [facility] [address] [address] [place], [place] [id number] MILADYS PINEDA Self - patient is the insured [place] [address] [place] [address] [id number] MILADYS PINEDA Self - patient is the insured MEDICAL (GENERAL) HISTORY Medical History History ICD Code Denies PR,DM,CVA,Lung disease,renal dise ase Depression/Anxiety Allergies Surgical History Surgery Date(Month/Year) Toe on right foot BTL
--- OUTSIDE RECORDS SUMMARY | 2024-03-06 05:37 | XMS_ITS ---
Author Organization [facility] Address [address] [place] [address] Care Team Providers Care Artillery Specialist Name Role Phone Abby Nicole Primary Care Provider Unavailab Peter Soto Unavailable [phone] REASON FOR VISIT screening Encounters Encounter Location Date Provider Diagnosis [facility] Outpatient [address] [place] [id number] 11/08/2022 Peter Veliz Encounter for scre ening colonoscopy Z12.11 ASSESSMENTS Encounter Date Diagnosis Assessment Notes Treatment Notes Treatment Clinical Notes 11/08/2022 Encounter for screening colonoscopy (ICD-10 - Z12.11) PLAN OF TREATMENT No Information
--- OUTSIDE RECORDS SUMMARY | 2024-03-06 05:37 | XMS_ITS | Clinical Summary ---
Author Organization [facility] [address] [place] [address] Care Team Providers Care Process Coach Name Role Phone Unavailable Primary Care Provider Unavailabl e Social History Tobacco Use Types Packs/Day Years Used Date Smoking Tobacco: Never Assessed Sex and Gender Information Value Date Recorded Sex Assigned at Not on file Gender Identity Not on file Sexual Orientation Not on file Plan of Treatment Health Maintenance Due Date Last Done Comments Breast Cancer Screening 1976 DTaP,Tdap,and Td Vaccines (1 - Tdap) 07/05/1995 Hepatitis B Vaccines (1 of 3 - 19+ 3-dose series) 07/05/1995 Cervical Cancer Screening: P ap Smear 1997 Colorectal Cancer Screening: Colonoscopy 01/04/2022 Depression Screening 01/04/2022 HIV Screening 01/04/2022 Hepatitis C Screening 01/04/2022 Social Influencers of Health Screening 01/04/2022 COVID-19 Vaccine (2023-2 5 season) 2023 Influenza Vaccine (#1) 2023 HIB Vaccines Aged Out No longer eligi ble based on patient's age to complete this topic HPV Vaccines Aged Out No longer eligi ble based on patient's age to complete this topic Hepatitis A Vaccines Aged Out No long er eligible based on patient's age to complete this topic IPV Vaccines Aged Out No longer eligi ble based on patient's age to complete this topic MMR Vaccines Aged Out No longer eligi ble based on patient's age to complete this topic Meningococcal ACWY Vaccine Aged Out N o longer eligible based on patient's age to complete this topic Pneumococcal Vaccine: Pediat rics (0 to 5 Years) and At-Risk Patients (6 to 64 Years) Aged Out No longer eligible b ased on patient's age to complete this topic RSV Immunization Patients Un roosevelt 20 months Aged Out No longer eligible b ased on patient's age to complete this topic Varicella Vaccines Aged Out No longer eligible based on patient's age to complete this topic
== END 2024-03-06 05:36 | disposition home or self-care (01) ==
LOC: HO.NEURO 05:35
PROVIDERS: PCP Internal Medicine; Visit Provider Internal Medicine
DX: G56.01 Carpal tunnel syndrome, right upper limb (principal)
CPT/HCPCS: 95886; 95910

== ENCOUNTER 2024-06-12 09:58 | Outpatient (REF) | payer OTHER, SELFPAY ==
[2024-06-12 10:16] LABS: MANUAL DIFF FLAG NO
[2024-06-12 10:38] LABS: Basophils Absolute Auto 0.1 X10*3/uL (0.0-0.2); Basophils Percent Auto 1.1 % (0-2); Eosinophils Absolute Auto 0.4 X10*3/uL (0.0-0.4); Hematocrit 39.5 % (37.0-47.0); Hemoglobin 12.8 g/dl (12.0-16.0); Imm Gran Abs Auto 0.02 X10*3/uL (0.00-0.03); Imm Gran Pct Auto 0.4 % (0.0-0.4); Lymphocytes Absolute Auto 1.9 X10*3/uL (1.2-4.9); Lymphocytes Percent Auto 36.3 % (20-40); Mean Corpuscular HGB Conc 32.4 g/dl (31.0-35.0); Mean Corpuscular Hemoglobin 29.4 pg (27.0-33.0); Mean Corpuscular Volume 90.6 fL (80.0-98.0); Mean Platelet Volume 10.3 fL (9.4-12.3); Monocytes Absolute Auto 0.4 X10*3/uL (0.1-1.2); Neutrophils Absolute Auto 2.5 x10*3/uL (2.0-8.3); Neutrophils Percent Auto 47.2 % (45-73); Platelet Count 186 X10*3/uL (160-400); Red Blood Count 4.36 X10*6/uL (4.20-5.50); Red Cell Distribution Width 11.9 % (11.0-16.0); White Blood Count 5.3 X10*3/uL (4.8-10.8)
--- OUTSIDE RECORDS SUMMARY | 2024-06-12 11:23 | XMS_ITS | Patient Health Record ---
Author Organization [facility] Address [address] [place] [address] Care Team Providers Care Hydroelectric Station Operator Name Role Phone Abby Nicole Primary Care Provider UnavailPeter Manuel Unavailable [phone] Allergies No Known Allergies Reason For Referral No Information Medications Medication SIG (Take, Route, Frequency, Duration) Notes [...] 08/10/2022 Active traZODone HCl Active ARIPiprazole Active Social History Tobacco Use: Social History Observation Description Date Details (start date - stop date) Never Smoker NA - NA Tobacco Use/Smoking Question Answer Notes Patient is [...] Never (0 point) Points 1 Interpretation Negative Problems Problem Type SNOMED Code ICD Code Onset Dates Problem Status W/U Status Risk Notes Problem [id number] Colon cancer screening (Z12.11) Active confirmed Problem [id number] Preprocedural examination (Z01.818) Active confirmed Plan Of Treatment Future Test Test Name Order Date COLONOSCOPY 08/06/2022 Insurance Providers Payer Name Payer Address Payer Phone Subscriber Number Group Number Insured Name Patient Relationship to Insured Coverage Start Date Coverage End Date [facility] [address] [address] [place], [place] [id number] MILADYS PINEDA Self - patient is the insured MEDICAID OF [facility] [address] [place] [address] [id number] MILADYS PINEDA Self - patient is the insured Medical (General) History Medical History History ICD Code Denies HI,DM,CVA,Lung disease,renal dise ase Depression/Anxiety Allergies Surgical History Surgery Date(Month/Year) Toe on right foot BTL
--- OUTSIDE RECORDS SUMMARY | 2024-06-12 11:23 | XMS_ITS | Clinical Summary ---
Author Organization [facility] [address] [place] [address] Care Team Providers Care Food Tester Name Role Phone Unavailable Primary Care Provider Unavailabl e Social History Tobacco Use Types Packs/Day Years Used Date Smoking Tobacco: Never Assessed Comments Unknown Sex and Gender Information Value Date Recorded Sex Assigned at Not on file Legal Sex Female 9:30 AM EST Gender Identity Not on file Sexual Orientation [...] Influencers of Health Screening 01/04/2022 COVID-19 Vaccine ( - 2023-2 5 season) 2023 Influenza Vaccine (Season Ended) 2024 HIB Vaccines Aged Out No longer eligi [...] patient's age to complete this topic Meningococcal B Vaccine Aged Out No l onger eligible based on patient's age to complete [...]
[2024-06-12 11:26] LABS: Alanine Aminotransferase 55 U/L (0-31); Albumin Level 4.3 g/dL (3.5-5.0); Alkaline Phosphatase 73 U/L (39-117); Anion Gap 10 (12-20); Aspartate Amino Transferase 38 U/L (5-31); Bilirubin Total 0.6 mg/dL (0.0-1.0); Blood Urea Nitrogen 14 mg/dL (9-16); Calcium 8.5 mg/dL (8.4-10.2); Carbon Dioxide 26 mmol/L (22-29); Chloride 108 mmol/L (96-108); Estimated Glomerular Filt Rate > 60; Glucose Random 96 mg/dL (60-115); Sodium 140 mmol/L (135-145); Total Protein 7.4 g/dL (6.5-8.0)
== END 2024-06-12 09:59 | disposition home or self-care (01) ==
LOC: HO.LAB 09:58
PROVIDERS: PCP Internal Medicine; Visit Provider Internal Medicine
DX: Z00.01 Encounter for general adult medical examination with abnormal findings (principal); F32.9 Major depressive disorder, single episode, unspecified; F41.8 Other specified anxiety disorders; N23 Unspecified renal colic
CPT/HCPCS: 36415; 80053; 85025

== ENCOUNTER 2024-12-06 08:50 | Outpatient (REF) | payer OTHER, SELFPAY ==
--- OUTSIDE RECORDS SUMMARY | 2024-12-06 09:48 | XMS_ITS | Encounter Summary ---
Author Organization [facility] Address [address] [place] [address] Phone Care Team Providers Care Religion Department Chair Name Role Phone Abby Nicole MD Primary Care Provider Encounter Details Date Type Department Care Team (Late st Contact Info) Description 03/10/2017 Ancillary Orders Virtual Department [address] [place] [address] Abby Nicole MD [address] [place] [address] [facility] [place] [address] Breast cancer screening Social History Tobacco Use Types Packs/Day Years Used Date Smoking Tobacco: Never Assessed Comments Unknown Sex and Gender Information Value Date Recorded Sex Assigned at Not on file Legal Sex Female 2:02 PM EST Gender Identity Not on file Sexual Orientation Not on file documented as of this encounter Plan of Treatment Not on file documented as of this encounter Results * BI MAMMOGRAM SCREENING WITH TOMOSYNTHESIS WITH CAD (BILATERAL) (04/28/2017 3:16 PM EDT) Anatomical Region Laterality Modality Breast Left, Breast Right, Breast Bilateral Bila teral Mammography 04/29/2017 7:09 AM EDT Impressions 04/29/2017 7:12 AM EDT No mammographic evidence of of malignancy. Routine screening is recommended. BI-RADS CATEGORY: 1 - Negative. DENSITY: The breast tissue is heterogeneously dense, an appearance which lowers the sensitivity of mammography. POS - CDHMAM2 Narrative 04/29/2017 7:12 AM EDT FINDINGS: Bilateral full-field digital screening mammography is obtained and read in conjunction with computer-aided detection. 3-D tomosynthesis as well as 2-D C view imaging is also performed. This is a baseline exam. Breasts are composed of heterogeneously dense fibroglandular tissue which limits mammographic sensitivity. No suspicious mass, suspicious microcalcifications, architectural distortion, focal skin thickening, or asymmetry is detected. Procedure Note No Morales MD - 04/29/2017 FINDINGS: Bilateral full-field digital screening mammography is obtained and read inconjunction with computer-aided detection. 3-D tomosynthesis as well as2-D C view imaging is also performed. This is a baseline exam. Breasts are composed of heterogeneously dense fibroglandular tissue whichlimits mammographic sensitivity. No suspicious mass, suspiciousmicrocalcifications, architectural distortion, focal skin thickening, orasymmetry is detected. IMPRESSION: No mammographic evidence of of malignancy. Routine screening isrecommended. BI-RADS CATEGORY: 1 - Negative. DENSITY: The breast tissue is heterogeneously dense, an appearance whichlowers the sensitivity of mammography. POS - CDHMAM2 Abby Nicole MD IMG MG EXAMS Final Result documented in this encounter Visit Diagnoses Diagnosis Breast cancer screening Breast screening, unspecified Breast cancer screening Breast screening, unspecified documented in this encounter Care Teams Religion Department Chair Relationship Specialty Start Date End Date Abby Nicole MD [address] [place] [address] [place] [address] PCP - General Internal Medicine 03/10/17 documented as of this encounter Additional Source Comments The information contained in this document represents components of the legal health record. It is not the complete legal health record.[facility]
--- OUTSIDE RECORDS SUMMARY | 2024-12-06 09:49 | XMS_ITS | Patient Health Record ---
Author Organization [facility] Address [address] [place] [address] Care Team Providers Care Jewel Bearing Facer Name Role Phone Abby Nicole Primary Care Provider UnavailPeter Manuel [phone] Allergies No Known Allergies Reason For Referral No Information Medications Medication SIG (Take, Route, Frequency, Duration) Notes Start Date End Date Status Claritin 10 MG 1 tablet Orally Once a day; Duration: 30 day(s) Active MiraLax (colon prep) 17 GM/SCOOP 1 238Gm bottle mixed with Gatorade or Crystal Light Orally begin at 5:00 p.m. the day before the procedure; Duration: 1 day 08/10/2022 Active cloNIDine Not-Taking Zolpidem Tartrate No t-Taking Montelukast Sodium N ot-Taking Dulcolax (colon prep) 5 MG take at 3:00 p.m and 7:00p.m. Orally two tablets twice a day for one day; Duration: 1 day 08/10/2022 Active traZODone HCl Active [...] Problem Status W/U Status Risk Notes Problem Colon cancer screening (752485631) Colon cancer screening (Z12.11) Active confirmed Problem Preprocedural examination (515720888608076) Preprocedural examination (Z01.818) Active confirmed Plan Of Treatment Future Test Test Name Order Date COLONOSCOPY 08/06/2022 Insurance Providers Payer Name Payer Address Payer Phone Subscriber Number Group Number Insured Name Patient Relationship to Insured Coverage Start Date Coverage End Date [facility] [address] [address] [place], [place] [id number] MILADYS PINEDA Self - patient is the insured [place] [address] [place] [address] [id number] MILADYS PINEDA Self - patient is the insured Medical (General) History Medical History History ICD Code Denies CO,DM,CVA,Lung disease,renal dise ase Depression/Anxiety Allergies Surgical History Surgery Date(Month/Year) Toe on right foot BTL
--- OUTSIDE RECORDS SUMMARY | 2024-12-06 09:49 | XMS_ITS | Clinical Summary ---
Author Organization [facility] Address [address] [place] [address] Phone Care Team Providers Care Specialist Employee Labor Relations Name Role Phone Abby Nicole MD Primary Care Provider Social History Tobacco Use Types Packs/Day Years Used Date Smoking Tobacco: Never Assessed Comments Unknown Sex and Gender Information Value Date Recorded Sex Assigned at Not on file Legal Sex Female 2:02 PM EST Gender Identity Not on file Sexual Orientation Not on file Plan of Treatment Not on file Medical Devices Not on file Insurance [employer] Member Subscriber Plan / Payer (Ef fective 2017-Present) Name:Leland Pizarro Relation to Subscriber:Self Name:Leland Pizarro Payer ID:[id number] Group ID:[id number] Type:HMO Address: [place] [id number] [employer] [facility] [employer] EPO Care Teams Specialist Employee Labor Relations Relationship Specialty Start Date End Date Abby Nicole MD [address] [place] [address] [place] [address] PCP - General Internal Medicine 03/10/17 Additional Source Comments The information contained in this document represents components of the legal health record. It is not the complete legal health record.[facility]
--- OUTSIDE RECORDS SUMMARY | 2024-12-06 09:49 | XMS_ITS | Clinical Summary ---
Author Organization [facility] Address [address] [place] [address] Care Team Providers Care Building Rigger Name Role Phone Unavailable Primary Care Provider [...] Cervical Cancer Screening: P ap Smear 1997 Depression Screening 02/08/2024 COVID-19 Vaccine (1 - 2023-2 5 season) 2024 Influenza Vaccine (#1) 2024 RSV Immunization Adult Patie nts (1 - 1-dose 75+ series) 07/05/2051 HIB Vaccines Aged Out No longer eligi [...] 5 Years) and At-Risk Patients (6 to 49 Years) Aged Out No longer eligible b ased on patient's age to complete this topic RSV Immunization Patients Un roosevelt 20 months Aged Out No longer eligible b ased on patient's age to complete this topic Varicella Vaccines Aged Out No longer eligible based on patient's age to complete this topic
== END 2024-12-06 08:51 | disposition home or self-care (01) ==
LOC: HO.MAMMO 08:50
PROVIDERS: PCP Internal Medicine; Visit Provider Internal Medicine
DX: Z12.31 Encounter for screening mammogram for malignant neoplasm of breast (principal)
CPT/HCPCS: 77063; 77067

== ENCOUNTER → 2024-12-06 09:00 | Outpatient (BNV) | payer OTHER, SELFPAY | PROVIDERS: PCP Internal Medicine; Visit Provider Radiology Body Imaging | DX: Z12.31 Encounter for screening mammogram for malignant neoplasm of breast (principal) | CPT/HCPCS: 77063; 77067 ==

== ENCOUNTER 2024-12-27 12:18 | Outpatient (REF) | payer OTHER, SELFPAY ==
--- NOTE | ~2024-12-27 | MM_ITS ---
EXAMINATION: MM DIAGNOSTIC DIGITAL BREAST TOMOSYNTHESIS, RIGHT Right limited ultrasound. CLINICAL INFORMATION: Call back from screening for focal asymmetry in the upper inner right breast. COMPARISON: Mammography: Prior's on PACS. TECHNIQUE: Digital breast tomosynthesis is performed in both the craniocaudal and mediolateral oblique views along with computer-aided detection (CAD). Synthesized 2D images are generated from the tomosynthesis. FINDINGS: The breasts are heterogeneously dense, which may obscure small masses. Previously seen focal asymmetry in the upper inner right breast does not persist on additional imaging projections and likely represented overlapping breast tissue. There are no significant masses, abnormal calcifications, or other abnormalities. Targeted color Doppler ultrasound scanning from 12-3 in the upper central and medial breast demonstrates normal fibroglandular breast tissue. There is no sonographic abnormal finding. MM/MM tomosynthesis added views R IMPRESSION: No mammographic evidence of malignancy. ASSESSMENT: BI-RADS Category 1: Negative RECOMMENDATION: 1 year F/U Results were provided to the patient at time of visit by the technologist. This patient's information was entered into a reminder system with a target due date for their next mammogram. Electronically signed by: Frannie Garland DO 12/27/2024 01:52 PM [facility]
== END 2024-12-27 12:19 | disposition home or self-care (01) ==
LOC: HO.MAMMO 12:18
PROVIDERS: PCP Internal Medicine; Visit Provider Internal Medicine
DX: N64.89 Other specified disorders of breast (principal)
CPT/HCPCS: 76642; 77061; 77065

== ENCOUNTER → 2024-12-27 13:00 | Outpatient (BNV) | payer OTHER, SELFPAY | PROVIDERS: PCP Internal Medicine; Visit Provider Internal Medicine | DX: R92.8 Other abnormal and inconclusive findings on diagnostic imaging of breast (principal) | CPT/HCPCS: 76642; 77061; 77065 ==